=== PATIENT | female | born 1970 | race African-American/Black ===

== ENCOUNTER 2017-04-05 03:02 | Inpatient (IN) | payer MEDICAID, OTHER ==
[2017-04-04 09:45] VITALS: BP 130/100
[2017-04-05] VITALS (7 sets, daily range): BP systolic 137–164; BP diastolic 91–109
[~2017-04-05] VITALS: Ht 162.6 cm; Wt 45.6 kg
[2017-04-05] MEDS ORDERED: ENALAPRIL 2.5MG/2ML VIAL 2ML IV ONE (04:15)
[2017-04-05] MEDS ORDERED: LABETALOL 5MG/ML SYR 20 MG/4 ML SYRINGE IV ONE (04:15)
[2017-04-05 04:26] LABS: BASOPHILS % 0.5 % (0.0-2.0); EOSINOPHILS % 4.7 % (0.0-5.0); HEMATOCRIT. 27.6 % (36.0-48.0); HEMOGLOBIN. 9.1 g/dL (12.0-16.0); LYMPHOCYTES % 16.3 % (20.0-50.0); MEAN CORPUSCULAR HEMOGLOBIN 29.4 pg (28.0-32.0); MEAN CORPUSCULAR VOLUME 89.4 fL (81.0-99.0); MEAN PLATELET VOLUME 8.5 fl (7.4-10.4); MONOCYTES % 5.7 % (2.0-8.0); NEUTROPHILS % 72.8 % (40.0-76.0); PLATELET 105 x1000/uL (130-400); RED BLOOD CELL COUNT 3.09 mill/uL (4.2-5.4); RED CELL DISTRIBUTION WIDTH 15.9 % (11.6-14.6)
[2017-04-05 04:34] LABS: HCG SCREEN NEGATIVE
[2017-04-05 04:43] LABS: CARBON DIOXIDE 32 mEq/L (21-32); CHLORIDE 104 mEq/L (98-107); TROPONIN I 0.03 ng/mL (0.00-0.04)
[2017-04-05] MEDS ORDERED: IPRATROPIUM/ALBUTEROL 0.5-3(2.5)MG/3ML NEB INH PRN (09:45)
[2017-04-05] MEDS ORDERED: ONDANSETRON HCL 4MG/2ML VIAL IV PRN (09:45)
[2017-04-05] MEDS ORDERED: ENOXAPARIN 40MG/0.4ML SYR SUBCUT SCH (09:45)
[2017-04-05] MEDS: ENOXAPARIN 30MG/0.3ML SYR SUBCUT SCH (10:00)
[2017-04-05] MEDS ORDERED: AZITHROMYCIN 500 MG in DEXT 5% WATER 250 ML IV SCH (11:00)
[2017-04-05] MEDS: AMLODIPINE 10MG TABLET PO SCH (11:10)
[2017-04-05] MEDS: CLONIDINE 0.1MG TABLET PO PRN (11:14)
[2017-04-05] MEDS ORDERED: AMLO10TA4 PO (11:31)
[2017-04-05] MEDS ORDERED: ACET-2178 PO (11:31)
[2017-04-05] MEDS ORDERED: CLON0.1T PO (11:31)
[2017-04-05] MEDS ORDERED: ONDA4TAB21 SL (11:31)
[2017-04-05] MEDS ORDERED: SEVE800T8 PO (11:31)
[2017-04-05] MEDS ORDERED: ASPI-1159 PO (11:31)
[2017-04-05] MEDS ORDERED: COMPAZINE RC (11:31)
[2017-04-05] MEDS ORDERED: HYDR-4134 PO (11:31)
[2017-04-05] MEDS ORDERED: DIPH25CA83 PO (11:31)
[2017-04-05] MEDS: IPRATROPIUM/ALBUTEROL 0.5-3(2.5)MG/3ML NEB INH SCH ×3 (12:32→20:41)
[2017-04-05] MEDS ORDERED: IPRATROPIUM/ALBUTEROL 0.5-3(2.5)MG/3ML NEB HHN PRN (12:45)
[2017-04-05 12:46] LABS: INR 1.2; PARTIAL THROMBOPLASTIN TIME 29.9 sec (23.4-31.0); PROTHROMBIN TIME 12.5 sec (9.4-11.6)
[2017-04-05] MEDS: CLONIDINE 0.1MG TABLET PO SCH ×2 (14:00→21:00)
[2017-04-05 14:29] LABS: HEPATITIS B SURFACE ANTIGEN NEGATIVE
[2017-04-05 14:56] LABS: HEPATITIS B CORE AB IGM NEGATIVE
[2017-04-05 14:57] LABS: HEPATITIS A AB IGM NEGATIVE (NEGATIVE)
[2017-04-05] MEDS: HYDROCODONE/ACETAMINOPHEN 10/325MG TABLET PO PRN (15:07)
[2017-04-05] MEDS ORDERED: IPRATROPIUM/ALBUTEROL 0.5-3(2.5)MG/3ML NEB HHN SCH (16:00)
[2017-04-05 18:18] LABS: BG BASE EXCESS 3.8 mmol/L (-2.0-2.0); BG CARBOXYHEMOGLOBIN 1.3 % (0.5-1.5); BG DEOXYHEMOGLOBIN 4.8 % (0.0-5.0); BG FRACTION INSPIRED OXYGEN 28; BG HCO3 ACT 27.7 mmol/L (22.0-26.0); BG METHEMOGLOBIN 0.3 % (0.0-1.5); BG OXYGEN SATURATION 95.1 % (92.0-98.5); BG OXYHEMOGLOBIN 93.6 % (94.0-97.0); BG PCO2 38.9 mmHg (35.0-45.0); BG PO2 74.3 mmHg (75.0-100.0); BG SAMPLE SITE RIGHT BRACHIAL; BG TOTAL HEMOGLOBIN 9.3 g/dL (12.0-18.0); BG VENT MODE NASAL CANNULA
[2017-04-05] MEDS: BUDESONIDE 0.5MG/2ML NEB HHN SCH (20:42)
[2017-04-06] VITALS (12 sets, daily range): BP systolic 125–146; BP diastolic 76–99
[2017-04-06] MEDS: IPRATROPIUM/ALBUTEROL 0.5-3(2.5)MG/3ML NEB INH SCH ×6 (04:23→20:43)
[2017-04-06] MEDS: HYDROCODONE/ACETAMINOPHEN 5/325MG TABLET PO PRN (04:50)
[2017-04-06] MEDS: CLONIDINE 0.1MG TABLET PO SCH ×3 (06:54→21:19)
[2017-04-06] MEDS: ENOXAPARIN 30MG/0.3ML SYR SUBCUT SCH (08:20)
[2017-04-06 08:29] LABS: BG BASE EXCESS 1.8 mmol/L (-2.0-2.0); BG CARBOXYHEMOGLOBIN 1.6 % (0.5-1.5); BG DEOXYHEMOGLOBIN 6.5 % (0.0-5.0); BG FRACTION INSPIRED OXYGEN 21; BG HCO3 ACT 25.4 mmol/L (22.0-26.0); BG METHEMOGLOBIN 0.3 % (0.0-1.5); BG OXYGEN SATURATION 93.4 % (92.0-98.5); BG OXYHEMOGLOBIN 91.6 % (94.0-97.0); BG PCO2 35.4 mmHg (35.0-45.0); BG PH 7.474 (7.350-7.450); BG PO2 70.3 mmHg (75.0-100.0); BG SAMPLE SITE RIGHT BRACHIAL; BG TOTAL HEMOGLOBIN 8.3 g/dL (12.0-18.0); BG VENT MODE ROOM AIR
[2017-04-06] MEDS: AMLODIPINE 10MG TABLET PO SCH (08:39)
[2017-04-06] MEDS: BUDESONIDE 0.5MG/2ML NEB HHN SCH ×2 (08:41→20:44)
[2017-04-06 15:43] LABS: BASOPHILS % 0.6 % (0.0-2.0); HEMATOCRIT. 25.7 % (36.0-48.0); HEMOGLOBIN. 8.4 g/dL (12.0-16.0); LYMPHOCYTES % 14.6 % (20.0-50.0); MEAN CORPUSCULAR HEMOGLOBIN 29.4 pg (28.0-32.0); MEAN CORPUSCULAR VOLUME 89.8 fL (81.0-99.0); MEAN PLATELET VOLUME 8.5 fl (7.4-10.4); MONOCYTES % 6.2 % (2.0-8.0); NEUTROPHILS % 72.6 % (40.0-76.0); PLATELET 125 x1000/uL (130-400); RED BLOOD CELL COUNT 2.87 mill/uL (4.2-5.4); RED CELL DISTRIBUTION WIDTH 15.9 % (11.6-14.6)
[2017-04-06 15:51] LABS: CARBON DIOXIDE 28 mEq/L (21-32); CHLORIDE 97 mEq/L (98-107); HDL CHOLESTEROL 42 mg/dL (40-59); LDL CHOLESTEROL 73 mg/dL (5-100); TROPONIN I 0.02 ng/mL (0.00-0.04)
[2017-04-06] MEDS: HYDROCODONE/ACETAMINOPHEN 10/325MG TABLET PO PRN (17:33)
[2017-04-07] VITALS (17 sets, daily range): BP systolic 117–160; BP diastolic 78–110
[2017-04-07] MEDS: IPRATROPIUM/ALBUTEROL 0.5-3(2.5)MG/3ML NEB INH SCH ×6 (04:20→20:00)
[2017-04-07] MEDS: CLONIDINE 0.1MG TABLET PO SCH ×3 (05:08→21:39)
[2017-04-07] MEDS: ENOXAPARIN 30MG/0.3ML SYR SUBCUT SCH (08:20)
[2017-04-07] MEDS: AMLODIPINE 10MG TABLET PO SCH ×2 (08:20→17:43)
[2017-04-07] MEDS: BUDESONIDE 0.5MG/2ML NEB HHN SCH ×2 (08:48→20:54)
[2017-04-07] MEDS ORDERED: AMLO10TA4 PO (10:33)
[2017-04-07] MEDS ORDERED: CLON0.1T PO (10:33)
[2017-04-07] MEDS ORDERED: SEVE800T8 PO (10:33)
[2017-04-07] MEDS ORDERED: ONDA4TAB21 SL (10:33)
[2017-04-07] MEDS ORDERED: HYDR-4134 PO (10:33)
[2017-04-07] MEDS ORDERED: ASPI-1159 PO (10:33)
[2017-04-07] MEDS: HYDROCODONE/ACETAMINOPHEN 5/325MG TABLET PO PRN (14:04)
[2017-04-07 14:14] LABS: BASOPHILS % 0.5 % (0.0-2.0); EOSINOPHILS % 6.9 % (0.0-5.0); LYMPHOCYTES % 16.6 % (20.0-50.0); MEAN CORPUSCULAR HEMOGLOBIN 29.3 pg (28.0-32.0); MONOCYTES % 6.7 % (2.0-8.0); NEUTROPHILS % 69.3 % (40.0-76.0); PLATELET 107 x1000/uL (130-400); RED BLOOD CELL COUNT 2.35 mill/uL (4.2-5.4); RED CELL DISTRIBUTION WIDTH 15.7 % (11.6-14.6)
[2017-04-07 14:27] LABS: HEMOGLOBIN. 6.9 g/dL (12.0-16.0)
[2017-04-08] VITALS (12 sets, daily range): BP systolic 132–151; BP diastolic 78–106
[2017-04-08] MEDS: IPRATROPIUM/ALBUTEROL 0.5-3(2.5)MG/3ML NEB INH SCH ×6 (04:00→20:00)
[2017-04-08] MEDS: CLONIDINE 0.1MG TABLET PO SCH ×3 (06:02→22:33)
[2017-04-08] MEDS: HYDROCODONE/ACETAMINOPHEN 5/325MG TABLET PO PRN (06:03)
[2017-04-08] MEDS: AMLODIPINE 10MG TABLET PO SCH (08:13)
[2017-04-08 09:26] LABS: BASOPHILS % 0.9 % (0.0-2.0); HEMATOCRIT. 27.9 % (36.0-48.0); HEMOGLOBIN. 9.3 g/dL (12.0-16.0); LYMPHOCYTES % 16.2 % (20.0-50.0); MEAN CORPUSCULAR HEMOGLOBIN 29.3 pg (28.0-32.0); MEAN CORPUSCULAR VOLUME 88.3 fL (81.0-99.0); MEAN PLATELET VOLUME 8.4 fl (7.4-10.4); MONOCYTES % 7.5 % (2.0-8.0); NEUTROPHILS % 66.4 % (40.0-76.0); PLATELET 120 x1000/uL (130-400); RED BLOOD CELL COUNT 3.16 mill/uL (4.2-5.4); RED CELL DISTRIBUTION WIDTH 15.9 % (11.6-14.6)
[2017-04-08 12:14] LABS: CLARITY URINE CLEAR (CLEAR); COLOR URINE YELLOW (YELLOW); GLUCOSE URINE TRACE (NEGATIVE); KETONES URINE NEGATIVE (NEGATIVE); LEUKOCYTE ESTERASE URINE 1+ (NEGATIVE); NITRITE URINE NEGATIVE (NEGATIVE); OCCULT BLOOD URINE NEGATIVE (NEGATIVE); PH URINE >=9.0 (4.5-8.0); PROTEIN URINE 3+ (NEGATIVE); SPECIFIC GRAVITY URINE 1.011 (1.005-1.030); UROBILINOGEN URINE 0.2 E.U./dL (0.2-1.0)
[2017-04-08 12:41] LABS: *AMPHETAMINES SCREEN URINE NEGATIVE (NEGATIVE); *BARBITURATES SCREEN URINE NEGATIVE (NEGATIVE); *BENZODIAZEPINES SCREEN URINE NEGATIVE (NEGATIVE); *COCAINE SCREEN URINE NEGATIVE (NEGATIVE); CANNABINOID URINE SCREEN NEGATIVE (NEGATIVE); METHADONE URINE SCREEN NEGATIVE (NEGATIVE); PHENCYCLIDINE URINE SCREEN NEGATIVE (NEGATIVE)
[2017-04-08 12:42] LABS: OPIATES URINE SCREEN PRESUMTIVE POSITIVE (NEGATIVE)
[2017-04-08] MEDS: DOCUSATE SODIUM 100MG CAPSULE PO SCH (13:50)
[2017-04-08] MEDS: BUDESONIDE 0.5MG/2ML NEB HHN SCH (20:00)
[2017-04-08] MEDS: CLONIDINE 0.1MG TABLET PO PRN (20:18)
[2017-04-09] VITALS (12 sets, daily range): BP systolic 133–157; BP diastolic 89–108
[2017-04-09] MEDS: CLONIDINE 0.1MG TABLET PO SCH ×3 (06:53→21:20)
[2017-04-09] MEDS: IPRATROPIUM/ALBUTEROL 0.5-3(2.5)MG/3ML NEB INH SCH ×6 (07:30→20:12)
[2017-04-09 08:03] LABS: BASOPHILS % 0.9 % (0.0-2.0); EOSINOPHILS % 8.8 % (0.0-5.0); HEMATOCRIT. 24.6 % (36.0-48.0); HEMOGLOBIN. 8.1 g/dL (12.0-16.0); LYMPHOCYTES % 22.4 % (20.0-50.0); MEAN CORPUSCULAR HEMOGLOBIN 28.9 pg (28.0-32.0); MEAN CORPUSCULAR VOLUME 87.6 fL (81.0-99.0); MEAN PLATELET VOLUME 8.3 fl (7.4-10.4); MONOCYTES % 8.2 % (2.0-8.0); NEUTROPHILS % 59.7 % (40.0-76.0); PLATELET 111 x1000/uL (130-400); RED BLOOD CELL COUNT 2.81 mill/uL (4.2-5.4); RED CELL DISTRIBUTION WIDTH 15.3 % (11.6-14.6)
[2017-04-09] MEDS: HYDROCODONE/ACETAMINOPHEN 5/325MG TABLET PO PRN ×2 (08:04→21:19)
[2017-04-09] MEDS: AMLODIPINE 10MG TABLET PO SCH (08:05)
[2017-04-09] MEDS: DOCUSATE SODIUM 100MG CAPSULE PO SCH ×2 (08:05→10:36)
[2017-04-09] MEDS ORDERED: DOCUSATE SODIUM 100MG CAPSULE PO SCH (09:00)
[2017-04-09] MEDS: PANTOPRAZOLE SODIUM 40 MG/VIAL IV SCH (10:36)
[2017-04-09] MEDS: CLONIDINE 0.1MG TABLET PO PRN (11:44)
[2017-04-09 19:46] LABS: BASOPHILS % 0.6 % (0.0-2.0); EOSINOPHILS % 9.2 % (0.0-5.0); HEMATOCRIT. 30.5 % (36.0-48.0); HEMOGLOBIN. 10.2 g/dL (12.0-16.0); LYMPHOCYTES % 20.6 % (20.0-50.0); MEAN CORPUSCULAR HEMOGLOBIN 29.4 pg (28.0-32.0); MEAN CORPUSCULAR VOLUME 88.1 fL (81.0-99.0); MEAN PLATELET VOLUME 8.5 fl (7.4-10.4); MONOCYTES % 9.8 % (2.0-8.0); NEUTROPHILS % 59.8 % (40.0-76.0); PLATELET 129 x1000/uL (130-400); RED BLOOD CELL COUNT 3.46 mill/uL (4.2-5.4); RED CELL DISTRIBUTION WIDTH 15.6 % (11.6-14.6)
[2017-04-10] VITALS (9 sets, daily range): BP systolic 118–149; BP diastolic 68–105
[2017-04-10] MEDS: IPRATROPIUM/ALBUTEROL 0.5-3(2.5)MG/3ML NEB INH SCH ×3 (00:19→09:30)
[2017-04-10] MEDS: CLONIDINE 0.1MG TABLET PO SCH (05:50)
[2017-04-10] MEDS: PANTOPRAZOLE SODIUM 40 MG/VIAL IV SCH (08:37)
[2017-04-10] MEDS: DOCUSATE SODIUM 100MG CAPSULE PO SCH (08:38)
[2017-04-10] MEDS: AMLODIPINE 10MG TABLET PO SCH (08:40)
[2017-04-10] MEDS: HYDROCODONE/ACETAMINOPHEN 5/325MG TABLET PO PRN (08:45)
[2017-04-10 09:16] LABS: HEMATOCRIT 29.5 % (36.0-48.0); HEMOGLOBIN 9.9 g/dL (12.0-16.0); MEAN CORPUSCULAR HEMOGLOBIN 29.5 pg (28.0-32.0); MEAN CORPUSCULAR VOLUME 88.2 fL (81.0-99.0); PLATELET 129 x1000/uL (130-400); RED BLOOD CELL COUNT 3.34 mill/uL (4.2-5.4); RED CELL DISTRIBUTION WIDTH 15.7 % (11.6-14.6)
[2017-04-10 09:20] LABS: CARBON DIOXIDE 27 mEq/L (21-32); CHLORIDE 98 mEq/L (98-107)
[2017-04-10] MEDS ORDERED: METRONIDAZOLE 500MG TABLET PO SCH (12:15)
== END 2017-04-10 14:30 | disposition home or self-care (01) | DRG 194 ==
LOC: ER 03:02 → 5EST 05:35 → EDBEDREQ 05:39 → ENRESERV 07:23 → 5EST 04-10 06:23
PROVIDERS: ADMIT Internal Medicine; ATTEND Internal Medicine
PROC: 5A1D60Z (ICD-10-PCS; principal; 2017-04-05)
PROC: 5A09357 Assistance with Respiratory Ventilation, Less than 24 Consecutive Hours, Continuous Positive Airway Pressure (ICD-10-PCS; 2017-04-05)
PROC: 30233N1 Transfusion of Nonautologous Red Blood Cells into Peripheral Vein, Percutaneous Approach (ICD-10-PCS; 2017-04-07)
DX: I13.2 Hypertensive heart and chronic kidney disease with heart failure and with stage 5 chronic kidney disease, or end stage renal disease (principal); J96.00 Acute respiratory failure, unspecified whether with hypoxia or hypercapnia; E43 Unspecified severe protein-calorie malnutrition; N18.6 End stage renal disease; R18.8 Other ascites; J44.1 Chronic obstructive pulmonary disease with (acute) exacerbation; D69.6 Thrombocytopenia, unspecified; I42.9 Cardiomyopathy, unspecified; E87.5 Hyperkalemia; I50.43 Acute on chronic combined systolic (congestive) and diastolic (congestive) heart failure; Z99.2 Dependence on renal dialysis; Z91.19 Patient's noncompliance with other medical treatment and regimen; N39.0 Urinary tract infection, site not specified; D64.9 Anemia, unspecified; I16.1 Hypertensive emergency; I34.0 Nonrheumatic mitral (valve) insufficiency; Z60.2 Problems related to living alone; I47.1 Supraventricular tachycardia; Z53.20 Procedure and treatment not carried out because of patient's decision for unspecified reasons; Z79.899 Other long term (current) drug therapy; Z86.718 Personal history of other venous thrombosis and embolism; Z87.891 Personal history of nicotine dependence; Z68.1 Body mass index [BMI] 19.9 or less, adult; Z79.82 Long term (current) use of aspirin
CPT/HCPCS: 36415; 36600; 71010; 76705; 80048; 80053; 80061; 80305; 81001; 82375; 82805; 83735; 84443; 84484; 84703; 85025; 85027; 85379; 85610; 85730; 86705; 86709; 86803; 86850; 86900; 86920; 87040; 87070; 87340; 93005; 93306; 93970; 94640; 94660; 94664; 96374; 96375; 99291; A6261; C9113; J0456; J3490; J7030; J7050; J7060; J7620; J7626; P9016